=== PATIENT | male | born 1965 | race Two or more races ===

== ENCOUNTER 2020-07-05 09:59 | Inpatient (IN) | payer OTHER ==
--- NOTE | 2020-07-05 10:38 | BHS.RME ---
Substance Use & Tx History - Substance Use History Alcohol Substance amount: 3 pints Vodka Frequency of use: Daily Substance route: Oral Date of Last Use: 07/05/20 (First drink age 44 or 49 y. No seizures or blackouts. 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) Nicotine Substance amount: one pack Frequency of use: Daily Substance route: Smoking Date of Last Use: 07/05/20 Physical/Psych/Mental Status - Behavior General Behavior: Increased activity (restlessness, agitation) Eye Contact: Normal - Cooperativeness Cooperativeness: Cooperative - Thinking Thought Processes: Tight Thought content: Future oriented - Physical Health Problems Is patient presently having any pain?: Yes (chronic right knee pain told "liquid" in knee by provider) Does patient presently have any injuries (include location): No Does patient currently have a fever: No CIWA Nausea/Vomitin Muscle Tremors: None Anxiety: 2 Agitation: 2 Paroxysmal Sweats: 1-Minimal Palms Moist Orientation: 1-Uncertain about Date Tacttile Disturbances: 0-None Auditory Disturbances: 0-None Visual Disturbances: 0-None Headache: 0-None Present CIWA-Ar Total Score: 12
[2020-07-05 11:20] VITALS: BMI 25.2
--- NOTE | 2020-07-05 11:32 | HP ---
CIWA Score Nausea/Vomitin Muscle Tremors: None Anxiety: 2 Agitation: 2 Paroxysmal Sweats: 1-Minimal Palms Moist Orientation: 1-Uncertain about Date Tacttile Disturbances: 0-None Auditory Disturbances: 0-None Visual Disturbances: 0-None Headache: 0-None Present CIWA-Ar Total Score: 12 - Admission Criteria OASAS Guidelines: Admission for Medically Managed Detox: Requires at least one of the followin. CIWA greater than 12 2. Seizures within the past 24 hours 3. Delirium tremens within the past 24 hours 4. Hallucinations within the past 24 hours 5. Acute intervention needed for co occurring medical disorder 6. Acute intervention needed for co occurring psychiatric disorder 7. Severe withdrawal that cannot be handled at a lower level of care (continued vomiting, continued diarrhea, abnormal vital signs) requiring intravenous medication and/or fluids 8. Admitting History and Physical - Admission History of Present Illness: Mr. Cartwright is a 54 yo man who presents to [facility] requesting admission to detox for alcohol use disorder. He was here yesterday but left before being seen, the patient states he was told to leave. Per our counselor the patient was angry and left. PMH: Chronic right knee pain Sugery: none Psych: depression, on no medication SOC: lives with sister, pt is Adventism Legal: none Substance Use History Alcohol Substance amount: 3 pints Vodka Frequency of use: Daily Substance route: Oral Date of Last Use: 07/05/20 (First drink age 44 or 49 y. No seizures or blackouts. 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) Nicotine Substance amount: one pack Frequency of use: Daily Substance route: Smoking Date of Last Use: 07/05/20 - Smoking History Smoking history: Current every day smoker Have you smoked in the past 12 months: Yes Aproximately how many cigarettes per day: 20 - Alcohol/Substance Use Hx Alcohol Use: Yes Admission ROS [facility] - [facility] Allergies/Adverse Reactions: Allergies Allergy/AdvReac Type Severity Reaction Status Date / Time No Known Allergies Allergy Verified 07/05/20 11:01 Exam Limitations: No Limitations - Ebola screening Have you traveled outside of the country in the last 21 days: No Have you been sick,other than usual withdrawal symptoms: No Do you have a fever: No - Review of Systems Constitutional: No Symptoms Reported EENT: reports: Other (bridge is broken, states he can only eat soft food) Respiratory: reports: No Symptoms reported Cardiac: reports: No Symptoms Reported GI: reports: No Symptoms Reported Musculoskeletal: reports: Joint Pain (right knee pain) Integumentary: reports: No Symptoms Reported Hematology: reports: No Symptoms Reported Psychiatric: reports: Depressed, other (insomnia) Patient History - Patient Medical History Hx Anemia: No Hx Asthma: No Hx Chronic Obstructive Pulmonary Disease (COPD): No Hx Cancer: No Hx Cardiac Disorders: No Hx Congestive Heart Failure: No Hx Hypertension: No Hx Hypercholesterolemia: No Hx Pacemaker: No HX Cerebrovascular Accident: No Hx Seizures: No Hx Dementia: No Hx Diabetes: No Hx Gastrointestinal Disorders: No Hx Liver Disease: No Hx Genitourinary Disorders: No Hx Sexually Transmitted Disorders: No Hx Renal Disease (ESRD): No Hx Thyroid Disease: No Hx Human Immunodeficiency Virus (HIV): No (last 2013 negative) Hx Hepatitis C: No Hx Depression: Yes Hx Suicide Attempt: No Hx Bipolar Disorder: No Hx Schizophrenia: No - Patient Surgical History Past Surgical History: Yes Hx Neurologic Surgery: No Hx Cataract Extraction: No Hx Cardiac Surgery: No Hx Lung Surgery: No Hx Breast Surgery: No Hx Breast Biopsy: No Hx Abdominal Surgery: No Hx Appendectomy: No Hx Cholecystectomy: No Hx Genitourinary Surgery: No Hx Section: No Hx Orthopedic Surgery: No Other Surgical History: surgery on right hand in 1984 (trauma) Anesthesia Reaction: No - PPD History Previous Implant?: Yes Documented Results: Negative w/proof Implanted On Prior [facility] Admission?: Yes Date: 12/12/15 Results: 0mm - Smoking Cessation Smoking history: Current every day smoker Have you smoked in the past 12 months: Yes Aproximately how many cigarettes per day: 20 Hx Chewing Tobacco Use: No Initiated information on smoking cessation: Yes 'Breaking Loose' booklet given: 07/05/20 - Substances abused Alprazolam (Xanax) Substance route: Oral Frequency: Daily Amount used: 3 PINTS VODKA Age of first use: 19 Date of last use: 07/05/20 Admission Physical Exam BHS - Vital Signs Vital Signs: Vital Signs - 24 hr 07/05/20 11:16 Temperature 97.9 F Pulse Rate 96 H Respiratory 18 Rate Blood Pressure 139/91 - Physical General Appearance: Yes: No Apparent Distress, Nourished, Alcohol on Breath, Intoxicated HEENTM: Yes: EOMI, Hearing grossly Normal, Normocephalic, Normal Voice, Other (missing upper teeth and several lower teeth) Respiratory: Yes: Lungs Clear, Normal Breath Sounds, No Respiratory Distress, No Accessory Muscle Use Neck: Yes: Within Normal Limits, Supple Breast: Yes: Breast Exam Deferred Cardiology: Yes: Regular Rhythm, Regular Rate Abdominal: Yes: Normal Bowel Sounds, Non Tender, Flat, Soft Back: Yes: Normal Inspection Musculoskeletal: Yes: Gait Steady Extremities: Yes: Normal Inspection, Non-Tender Integumentary: Yes: Normal Color, Dry, Warm - Diagnostic (1) Alcohol dependence with uncomplicated withdrawal Current Visit: Yes Status: Acute (2) Insomnia Current Visit: Yes Status: Acute Qualifiers: Insomnia type: alcohol-induced Qualified Code(s): F10.982 - Alcohol use, unspecified with alcohol-induced sleep disorder Comment: . Cleared for Admission S - Detox or Rehab [facility] Level of Care: Medically Managed Detox Regimen/Protocol: Librium Breathalyzer - Breathalyzer Breathalyzer: 0.285 Urine Drug Screen - Test Device Lot number: [id number] Expiration date: 02/09/22 - Control Is test valid?: Yes - Results Drug screen NEGATIVE: Yes Inpatient Rehab Admission - Rehab Decision to Admit Inpatient rehab admission?: No
[2020-07-05] MEDS ORDERED: chlordiazePOXIDE HCL 25 MG CAPSULE PO PRN (11:38)
[2020-07-05] MEDS ORDERED: BISMUTH SUBSALICYLATE 524 MG/30 ML UD PO PRN (11:38)
[2020-07-05] MEDS ORDERED: ACETAMINOPHEN 325 MG TABLET (FP) PO PRN ×2 (11:38)
[2020-07-05] MEDS ORDERED: MAG HYDROX/AL HYDROX/SIMETH 30 ML UNIT-DOSE CUP PO PRN (11:38)
[2020-07-05] MEDS ORDERED: NICOTINE POLACRILEX 2 MG GUM BUC PRN (11:38)
[2020-07-05] MEDS ORDERED: IBUPROFEN 400 MG TABLET (FP) PO PRN (11:38)
[2020-07-05] MEDS ORDERED: MAGNESIUM HYDROX 2400MG/30ML ORAL SUSPENSION 30 ML CUP PO PRN (11:38)
[2020-07-05] MEDS ORDERED: MAGNESIUM CITRATE 300 ML BOTTLE PO PRN (11:38)
[2020-07-05] MEDS ORDERED: MENTHOL/PHENOL 1 EACH UD MM PRN (11:38)
[2020-07-05] MEDS ORDERED: ONDANSETRON *ODT* 4 MG TABLET SL PRN (11:38)
[2020-07-05] MEDS ORDERED: METHOCARBAMOL 500 MG TABLET PO PRN (11:38)
[2020-07-05] MEDS: NICOTINE 21 MG/24 HOURS TOPICAL PATCH TD SCH (12:01)
[2020-07-05] MEDS: hydrOXYzine PAMOATE 25 MG CAPSULE (FP) PO SCH ×3 (13:42→22:22)
[2020-07-05 16:13] LABS: BILIRUBIN,TOTAL 0.2 mg/dL (0.2-1); BLOOD UREA NITROGEN 10.9 mg/dL (7-18); CALCIUM 8.3 mg/dL (8.5-10.1); CREATININE 0.7 mg/dL (0.55-1.3); POTASSIUM 3.6 mmol/L (3.5-5.1); TOT PROT 7.1 g/dl (6.4-8.2)
[2020-07-05 16:15] LABS: HEMATOCRIT 44.3 % (35.4-49); HEMOGLOBIN 15.1 GM/dL (11.7-16.9); MCH 34.1 pg (25.7-33.7); MEAN CELL VOLUME 100.2 fl (80-96); MEAN PLT VOLUME 9.5 fl (7.5-11.1); PLATELET COUNT 208 K/MM3 (134-434); RBC 4.42 M/mm3 (4.00-5.60); RDW 15.1 % (11.9-15.9)
[2020-07-05] MEDS: chlordiazePOXIDE HCL 25 MG CAPSULE PO SCH ×2 (17:38→22:21)
[2020-07-05] MEDS ORDERED: MELATONIN 5 MG TABLETS PO SCH (22:00)
[2020-07-05] MEDS: THIAMINE HCL 100 MG TABLET (FP) PO SCH (22:21)
[2020-07-06] MEDS: chlordiazePOXIDE HCL 25 MG CAPSULE PO SCH ×4 (05:54→22:35)
[2020-07-06] MEDS: hydrOXYzine PAMOATE 25 MG CAPSULE (FP) PO SCH ×2 (05:55→10:14)
--- NOTE | 2020-07-06 08:25 | CONSULT ---
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 Refer to addiction counselor's summary for further information Medical History: Significant for chronic pain right knee and history of surgery right middle finger due to an accident at work. Smokes cigarettes 1 ppd Psychiatric History: Patient is known for three previous admissions to this facility. He reports that all his previous psychiatric contacts are for anxiety and insomnia limited only during admissions to substance abuse inpatient program. Denies previous psychiatric hospitalization or suicidal attempt. At present, reports feeling mildly depressed and sleeping poorly Physical/Sexual Abuse/Trauma History: Denies history of abuse as a child or DV relationship as an adult Mental Status Exam - Mental Status Exam Alert and Oriented to: Time, Place, Person Cognitive Function: Fair Patient Appearance: Well Groomed Mood: Depressed Affect: Appropriate Patient Behavior: Cooperative Speech Pattern: Clear Voice Loudness: Normal Thought Process: Intact, Goal Oriented Hallucinations: Denies Suicidal Ideation: Denies Homicidal Ideation: Denies Insight/Judgement: Poor Sleep: Poorly Appetite: Good Muscle strength/Tone: Normal Gait/Station: Normal Psychiatric Findings - Problem List (Jackson 1, 2,3) (1) Alcohol-induced mood disorder Current Visit: Yes Status: Acute (2) Alcohol-induced sleep disorder Current Visit: Yes Status: Acute (3) Alcohol dependence with uncomplicated withdrawal Current Visit: Yes Status: Acute (4) Nicotine dependence Current Visit: No Status: Chronic Comment: . (5) Chronic pain of right knee Current Visit: Yes Status: Chronic - Initial Treatment Plan Initial Treatment Plan: 1) Start Belsomra 10 mg po HS prn for insomnia. 2) Continue inpatient detoxification
[2020-07-06] MEDS: PRENATAL VITAMINS W/ FOLIC ACID TABLET (FP) PO SCH (10:14)
[2020-07-06] MEDS: NICOTINE 21 MG/24 HOURS TOPICAL PATCH TD SCH (10:14)
--- NOTE | 2020-07-06 10:51 | PN ---
S CIWA - CIWA Score Nausea/Vomitin Muscle Tremors: 3 Anxiety: 3 Agitation: 3 Paroxysmal Sweats: 1-Minimal Palms Moist Orientation: 0-Oriented Tacttile Disturbances: 1-Very Mild Itch/Numbness Auditory Disturbances: 0-None Visual Disturbances: 0-None Headache: 2-Mild CIWA-Ar Total Score: 15 BHS Progress Note (SOAP) Subjective: alert,irritable,anxious,interrupted sleep,tremor,aching pain in the body and back Objective: 07/06/20 10:48 Vital Signs Temperature 98.2 F 07/06/20 09:12 Pulse Rate 81 07/06/20 09:12 Respiratory Rate 16 07/06/20 09:12 Blood Pressure 124/74 07/06/20 09:12 O2 Sat by Pulse Oximetry (%) 96 07/06/20 09:12 07/06/20 10:49 Laboratory Last Values WBC 7.0 K/mm3 (4.0-10.0) 07/05/20 11:40 RBC 4.42 M/mm3 (4.00-5.60) 07/05/20 11:40 Hgb 15.1 GM/dL (11.7-16.9) 07/05/20 11:40 Hct 44.3 % (35.4-49) 07/05/20 11:40 MCV 100.2 fl (80-96) H 07/05/20 11:40 MCH 34.1 pg (25.7-33.7) H 07/05/20 11:40 MCHC 34.0 g/dl (32.0-35.9) 07/05/20 11:40 RDW 15.1 % (11.9-15.9) 07/05/20 11:40 Plt Count 208 K/MM3 (134-434) 07/05/20 11:40 MPV 9.5 fl (7.5-11.1) 07/05/20 11:40 Sodium 142 mmol/L (136-145) 07/05/20 11:40 Potassium 3.6 mmol/L (3.5-5.1) 07/05/20 11:40 Chloride 106 mmol/L (98-107) 07/05/20 11:40 Carbon Dioxide 26 mmol/L (21-32) 07/05/20 11:40 Anion Gap 10 MMOL/L (8-16) 07/05/20 11:40 BUN 10.9 mg/dL (7-18) 07/05/20 11:40 Creatinine 0.7 mg/dL (0.55-1.3) 07/05/20 11:40 Est GFR (CKD-EPI)AfAm 123.13 07/05/20 11:40 Est GFR (CKD-EPI)NonAf 106.24 07/05/20 11:40 Random Glucose 85 mg/dL (74-106) 07/05/20 11:40 Calcium 8.3 mg/dL (8.5-10.1) L 07/05/20 11:40 Total Bilirubin 0.2 mg/dL (0.2-1) 07/05/20 11:40 AST 43 U/L (15-37) H 07/05/20 11:40 ALT 54 U/L (13-61) 07/05/20 11:40 Alkaline Phosphatase 64 U/L (45-117) 07/05/20 11:40 Total Protein 7.1 g/dl (6.4-8.2) 07/05/20 11:40 Albumin 4.0 g/dl (3.4-5.0) 07/05/20 11:40 Syphilis Serology Non-reactive (NONREACTIVE) 07/05/20 11:40 COVID-19 ([facility]) Not detected (Not Detected) 07/05/20 13:00 Assessment: 07/06/20 10:50 withdrawal symptom Plan: continue detox librium regimen,fluid
[2020-07-06] MEDS ORDERED: hydrOXYzine PAMOATE 25 MG CAPSULE (FP) PO PRN (11:50)
[2020-07-06] MEDS: THIAMINE HCL 100 MG TABLET (FP) PO SCH (22:35)
[2020-07-06] MEDS: SUVOREXANT 10 MG TABLET PO PRN (22:36)
[2020-07-07] MEDS: chlordiazePOXIDE HCL 25 MG CAPSULE PO SCH ×4 (06:31→22:28)
[2020-07-07] MEDS: PRENATAL VITAMINS W/ FOLIC ACID TABLET (FP) PO SCH (10:55)
[2020-07-07] MEDS: NICOTINE 21 MG/24 HOURS TOPICAL PATCH TD SCH (10:56)
[2020-07-07] MEDS ORDERED: IBUPROFEN 400 MG TABLET (FP) PO PRN (10:58)
--- NOTE | 2020-07-07 11:02 | PN ---
S CIWA - CIWA Score Nausea/Vomitin-No Nausea/No Vomiting Muscle Tremors: 3 Anxiety: 2 Agitation: 2 Paroxysmal Sweats: 2 Orientation: 0-Oriented Tacttile Disturbances: 0-None Auditory Disturbances: 0-None Visual Disturbances: 0-None Headache: 0-None Present CIWA-Ar Total Score: 9 BHS Progress Note (SOAP) Subjective: right knee pain sweats agitation Objective: 07/07/20 11:00 Vital Signs Temperature 98.2 F 07/07/20 08:41 Pulse Rate 80 07/07/20 08:41 Respiratory Rate 17 07/07/20 08:41 Blood Pressure 113/73 07/07/20 08:41 O2 Sat by Pulse Oximetry (%) 95 07/07/20 08:41 Laboratory Tests 07/05/20 07/05/20 07/05/20 11:40 11:40 11:40 WBC 7.0 RBC 4.42 Hgb 15.1 Hct 44.3 MCV 100.2 H MCH 34.1 H MCHC 34.0 RDW 15.1 Plt Count 208 MPV 9.5 Sodium 142 Potassium 3.6 Chloride 106 Carbon Dioxide 26 Anion Gap 10 BUN 10.9 Creatinine 0.7 Est GFR (CKD-EPI)AfAm 123.13 Est GFR (CKD-EPI)NonAf 106.24 Random Glucose 85 Calcium 8.3 L Total Bilirubin 0.2 AST 43 H ALT 54 Alkaline Phosphatase 64 Total Protein 7.1 Albumin 4.0 Syphilis Serology Non-reactive COVID-19 ([facility]) 07/05/20 13:00 WBC RBC Hgb Hct MCV MCH MCHC RDW Plt Count MPV Sodium Potassium Chloride Carbon Dioxide Anion Gap BUN Creatinine Est GFR (CKD-EPI)AfAm Est GFR (CKD-EPI)NonAf Random Glucose Calcium Total Bilirubin AST ALT Alkaline Phosphatase Total Protein Albumin Syphilis Serology COVID-19 ([facility]) Not detected labs noted aaox3 ambulating no acute distress Assessment: 07/07/20 11:01 withdrawals pt able to move knee freely however pt states his knee is acting up his arthritis is back. Plan: continue detox increase fluids analgesic balm motrin 800mg tid prn lidocaine patch to apply to right knee
[2020-07-07] MEDS: LIDOCAINE 5% TOPICAL PATCH TP SCH (13:31)
[2020-07-07] MEDS ORDERED: LIDOCAINE PATCH REMOVAL MC SCH (22:00)
[2020-07-07] MEDS: LIDOCAINE PATCH REMOVAL MC SCH (22:28)
[2020-07-07] MEDS: THIAMINE HCL 100 MG TABLET (FP) PO SCH (22:28)
[2020-07-07] MEDS: METHYL SALICYLATE/MENTHOL OINT 30 GM TUBE TP SCH (22:32)
[2020-07-07] MEDS: SUVOREXANT 10 MG TABLET PO PRN (22:32)
[2020-07-08] MEDS ORDERED: chlordiazePOXIDE HCL 10 MG CAPSULE PO PRN
[2020-07-08] MEDS: chlordiazePOXIDE HCL 10 MG CAPSULE PO SCH ×4 (05:59→23:04)
[2020-07-08] MEDS: LIDOCAINE 5% TOPICAL PATCH TP SCH (10:39)
[2020-07-08] MEDS: METHYL SALICYLATE/MENTHOL OINT 30 GM TUBE TP SCH ×2 (10:39→23:03)
[2020-07-08] MEDS: NICOTINE 21 MG/24 HOURS TOPICAL PATCH TD SCH (10:40)
[2020-07-08] MEDS: PRENATAL VITAMINS W/ FOLIC ACID TABLET (FP) PO SCH (10:40)
--- NOTE | 2020-07-08 11:13 | PN ---
S CIWA - CIWA Score Nausea/Vomitin-Mild Nausea/No Vomiting Muscle Tremors: 2 Anxiety: 2 Agitation: 2 Paroxysmal Sweats: No Perspiration Orientation: 0-Oriented Tacttile Disturbances: 1-Very Mild Itch/Numbness Auditory Disturbances: 0-None Visual Disturbances: 0-None Headache: 1-Very Mild CIWA-Ar Total Score: 9 S Progress Note (SOAP) Subjective: alert,irritable,anxious,interrupted sleep,tremor,pain in the body Objective: 07/08/20 11:11 Vital Signs Temperature 97.1 F L 07/08/20 05:40 Pulse Rate 73 07/08/20 05:40 Respiratory Rate 16 07/08/20 05:40 Blood Pressure 130/69 07/08/20 05:40 O2 Sat by Pulse Oximetry (%) 98 07/08/20 05:40 Assessment: 07/08/20 11:11 Laboratory Last Values WBC 7.0 K/mm3 (4.0-10.0) 07/05/20 11:40 RBC 4.42 M/mm3 (4.00-5.60) 07/05/20 11:40 Hgb 15.1 GM/dL (11.7-16.9) 07/05/20 11:40 Hct 44.3 % (35.4-49) 07/05/20 11:40 MCV 100.2 fl (80-96) H 07/05/20 11:40 MCH 34.1 pg (25.7-33.7) H 07/05/20 11:40 MCHC 34.0 g/dl (32.0-35.9) 07/05/20 11:40 RDW 15.1 % (11.9-15.9) 07/05/20 11:40 Plt Count 208 K/MM3 (134-434) 07/05/20 11:40 MPV 9.5 fl (7.5-11.1) 07/05/20 11:40 Sodium 142 mmol/L (136-145) 07/05/20 11:40 Potassium 3.6 mmol/L (3.5-5.1) 07/05/20 11:40 Chloride 106 mmol/L (98-107) 07/05/20 11:40 Carbon Dioxide 26 mmol/L (21-32) 07/05/20 11:40 Anion Gap 10 MMOL/L (8-16) 07/05/20 11:40 BUN 10.9 mg/dL (7-18) 07/05/20 11:40 Creatinine 0.7 mg/dL (0.55-1.3) 07/05/20 11:40 Est GFR (CKD-EPI)AfAm 123.13 07/05/20 11:40 Est GFR (CKD-EPI)NonAf 106.24 07/05/20 11:40 Random Glucose 85 mg/dL (74-106) 07/05/20 11:40 Calcium 8.3 mg/dL (8.5-10.1) L 07/05/20 11:40 Total Bilirubin 0.2 mg/dL (0.2-1) 07/05/20 11:40 AST 43 U/L (15-37) H 07/05/20 11:40 ALT 54 U/L (13-61) 07/05/20 11:40 Alkaline Phosphatase 64 U/L (45-117) 07/05/20 11:40 Total Protein 7.1 g/dl (6.4-8.2) 07/05/20 11:40 Albumin 4.0 g/dl (3.4-5.0) 07/05/20 11:40 Syphilis Serology Non-reactive (NONREACTIVE) 07/05/20 11:40 COVID-19 ([facility]) Not detected (Not Detected) 07/05/20 13:00 07/08/20 11:12 withdrawal symptom Plan: continue detox librium regimen
[2020-07-08] MEDS: LIDOCAINE PATCH REMOVAL MC SCH (23:03)
[2020-07-08] MEDS: THIAMINE HCL 100 MG TABLET (FP) PO SCH (23:03)
[2020-07-09] MEDS: chlordiazePOXIDE HCL 10 MG CAPSULE PO SCH ×2 (05:44→17:22)
[2020-07-09] MEDS: METHYL SALICYLATE/MENTHOL OINT 30 GM TUBE TP SCH ×2 (10:11→22:42)
[2020-07-09] MEDS: LIDOCAINE 5% TOPICAL PATCH TP SCH (10:11)
[2020-07-09] MEDS: NICOTINE 21 MG/24 HOURS TOPICAL PATCH TD SCH (10:11)
[2020-07-09] MEDS: PRENATAL VITAMINS W/ FOLIC ACID TABLET (FP) PO SCH (10:12)
--- NOTE | 2020-07-09 11:03 | PN ---
[facility] CIWA - CIWA Score Nausea/Vomitin-No Nausea/No Vomiting Muscle Tremors: 1-None Visible, but [place] Anxiety: 2 Agitation: 2 Paroxysmal Sweats: No Perspiration Orientation: 0-Oriented Tacttile Disturbances: 0-None Auditory Disturbances: 0-None Visual Disturbances: 0-None Headache: 0-None Present CIWA-Ar Total Score: 5 BHS Progress Note (SOAP) Subjective: Complaints of anxiety and agitation. Objective: 07/09/20 11:01 Vital Signs 07/09/20 07/09/20 05:32 08:40 Temperature 97.7 F 97.7 F Pulse Rate 50 L 90 Respiratory 20 18 Rate Blood Pressure 105/60 114/67 O2 Sat by Pulse 97 97 Oximetry (%) Laboratory Last Values WBC 7.0 K/mm3 (4.0-10.0) 07/05/20 11:40 RBC 4.42 M/mm3 (4.00-5.60) 07/05/20 11:40 Hgb 15.1 GM/dL (11.7-16.9) 07/05/20 11:40 Hct 44.3 % (35.4-49) 07/05/20 11:40 MCV 100.2 fl (80-96) H 07/05/20 11:40 MCH 34.1 pg (25.7-33.7) H 07/05/20 11:40 MCHC 34.0 g/dl (32.0-35.9) 07/05/20 11:40 RDW 15.1 % (11.9-15.9) 07/05/20 11:40 Plt Count 208 K/MM3 (134-434) 07/05/20 11:40 MPV 9.5 fl (7.5-11.1) 07/05/20 11:40 Sodium 142 mmol/L (136-145) 07/05/20 11:40 Potassium 3.6 mmol/L (3.5-5.1) 07/05/20 11:40 Chloride 106 mmol/L (98-107) 07/05/20 11:40 Carbon Dioxide 26 mmol/L (21-32) 07/05/20 11:40 Anion Gap 10 MMOL/L (8-16) 07/05/20 11:40 BUN 10.9 mg/dL (7-18) 07/05/20 11:40 Creatinine 0.7 mg/dL (0.55-1.3) 07/05/20 11:40 Est GFR (CKD-EPI)AfAm 123.13 07/05/20 11:40 Est GFR (CKD-EPI)NonAf 106.24 07/05/20 11:40 Random Glucose 85 mg/dL (74-106) 07/05/20 11:40 Calcium 8.3 mg/dL (8.5-10.1) L 07/05/20 11:40 Total Bilirubin 0.2 mg/dL (0.2-1) 07/05/20 11:40 AST 43 U/L (15-37) H 07/05/20 11:40 ALT 54 U/L (13-61) 07/05/20 11:40 Alkaline Phosphatase 64 U/L (45-117) 07/05/20 11:40 Total Protein 7.1 g/dl (6.4-8.2) 07/05/20 11:40 Albumin 4.0 g/dl (3.4-5.0) 07/05/20 11:40 Syphilis Serology Non-reactive (NONREACTIVE) 07/05/20 11:40 COVID-19 ([facility]) Not detected (Not Detected) 07/05/20 13:00 Labs noted. Assessment: 07/09/20 11:01 Alert and oriented x 3, in no acute respiratory distress. Full ROM, ambulating in unit without assistance. Skin warm to touch without any lesions. Mild withdrawal symptoms. For discharge in AM. Plan: Continue detox protocol. Discharge in AM.
[2020-07-09] MEDS: THIAMINE HCL 100 MG TABLET (FP) PO SCH (22:42)
[2020-07-09] MEDS: LIDOCAINE PATCH REMOVAL MC SCH (22:43)
[2020-07-10] MEDS ORDERED: chlordiazePOXIDE HCL 10 MG CAPSULE PO ONE (05:00)
[2020-07-10 09:56] VITALS: BP 106/56; PULSE 94; TEMP 98
--- NOTE | 2020-07-10 10:00 | DS ---
[facility] Detox Discharge Summary Admission Date: 07/05/20 Discharge Date: 07/10/20 - History Present History: Alcohol Dependence Additional Comments: Alert and oriented x 3, in no acute respiratory distress. Full ROM, ambulatory in unit without assistance. Skin warm to touch without any lesions. Completed alcohol detox protocol without any complications, stable for discharge today. Pertinent Past History: History of chronic right knee pain, alcohol and nicotine use disorder. - Physical Exam Results Vital Signs: Vital Signs Temperature 97.3 F L 07/10/20 05:15 Pulse Rate 77 07/10/20 05:15 Respiratory Rate 20 07/10/20 05:15 Blood Pressure 131/67 07/10/20 05:15 O2 Sat by Pulse Oximetry (%) 96 07/10/20 05:15 Vital Signs 07/10/20 07/10/20 05:15 08:52 Temperature 97.3 F L 98.0 F Pulse Rate 77 94 H Respiratory 20 18 Rate Blood Pressure 131/67 106/56 L O2 Sat by Pulse 96 96 Oximetry (%) Laboratory Last Values WBC 7.0 K/mm3 (4.0-10.0) 07/05/20 11:40 RBC 4.42 M/mm3 (4.00-5.60) 07/05/20 11:40 Hgb 15.1 GM/dL (11.7-16.9) 07/05/20 11:40 Hct 44.3 % (35.4-49) 07/05/20 11:40 MCV 100.2 fl (80-96) H 07/05/20 11:40 MCH 34.1 pg (25.7-33.7) H 07/05/20 11:40 MCHC 34.0 g/dl (32.0-35.9) 07/05/20 11:40 RDW 15.1 % (11.9-15.9) 07/05/20 11:40 Plt Count 208 K/MM3 (134-434) 07/05/20 11:40 MPV 9.5 fl (7.5-11.1) 07/05/20 11:40 Sodium 142 mmol/L (136-145) 07/05/20 11:40 Potassium 3.6 mmol/L (3.5-5.1) 07/05/20 11:40 Chloride 106 mmol/L (98-107) 07/05/20 11:40 Carbon Dioxide 26 mmol/L (21-32) 07/05/20 11:40 Anion Gap 10 MMOL/L (8-16) 07/05/20 11:40 BUN 10.9 mg/dL (7-18) 07/05/20 11:40 Creatinine 0.7 mg/dL (0.55-1.3) 07/05/20 11:40 Est GFR (CKD-EPI)AfAm 123.13 07/05/20 11:40 Est GFR (CKD-EPI)NonAf 106.24 07/05/20 11:40 Random Glucose 85 mg/dL (74-106) 07/05/20 11:40 Calcium 8.3 mg/dL (8.5-10.1) L 07/05/20 11:40 Total Bilirubin 0.2 mg/dL (0.2-1) 07/05/20 11:40 AST 43 U/L (15-37) H 07/05/20 11:40 ALT 54 U/L (13-61) 07/05/20 11:40 Alkaline Phosphatase 64 U/L (45-117) 07/05/20 11:40 Total Protein 7.1 g/dl (6.4-8.2) 07/05/20 11:40 Albumin 4.0 g/dl (3.4-5.0) 07/05/20 11:40 Syphilis Serology Non-reactive (NONREACTIVE) 07/05/20 11:40 COVID-19 ([facility]) Not detected (Not Detected) 07/05/20 13:00 Labs noted. Pertinent Admission Physical Exam Findings: Withdrawal symptoms. - Treatment Hospital Course: Detox Protocol Followed, Detoxed Safely, Responded well, Discharged Condition Good - Medication Discharge Medications: Ambulatory Orders NK [No Known Home Medication] 07/05/20 - Diagnosis (1) Alcohol dependence with uncomplicated withdrawal Current Visit: Yes Status: Resolved (2) Chronic pain of right knee Current Visit: Yes Status: Chronic (3) Nicotine dependence Current Visit: No Status: Chronic - AMA Did Patient Leave Against Medical Advice: No
[2020-07-10] MEDS: PRENATAL VITAMINS W/ FOLIC ACID TABLET (FP) PO SCH (11:03)
[2020-07-10] MEDS: METHYL SALICYLATE/MENTHOL OINT 30 GM TUBE TP SCH (11:03)
[2020-07-10] MEDS: NICOTINE 21 MG/24 HOURS TOPICAL PATCH TD SCH (11:03)
[2020-07-10] MEDS: LIDOCAINE 5% TOPICAL PATCH TP SCH (11:03)
== END 2020-07-10 09:55 | disposition home or self-care (01) | DRG 775 ==
LOC: YASAS 09:59 → Y6N 11:20
PROVIDERS: ADMIT Allergy & Immunology; ATTEND Allergy & Immunology
PROC: HZ2ZZZZ Detoxification Services for Substance Abuse Treatment (ICD-10-PCS; principal; 2020-07-05)
DX: F10.230 Alcohol dependence with withdrawal, uncomplicated (principal); F17.210 Nicotine dependence, cigarettes, uncomplicated; F10.282 Alcohol dependence with alcohol-induced sleep disorder; F10.24 Alcohol dependence with alcohol-induced mood disorder; F32.9 Major depressive disorder, single episode, unspecified; M25.561 Pain in right knee; G89.29 Other chronic pain
CPT/HCPCS: 36415; 80053; 85027; 86780; U0003